=== PATIENT | male | born 1990 | race Caucasian/White ===

== ENCOUNTER 2017-07-29 12:45 | Emergency (ER) | payer OTHER, BC ==
[~2017-07-29] VITALS: Ht 188 cm; Wt 83.9 kg
[~2017-07-29 12:45] MED LIST: CIPR-344 PO; DICL-195 PO; DOCU-416 PO; HYDR-4225 PO; HYDR-4309 PO; HYDR25SU51 RC; LIDO5T TP; ONDA4TAB PO; OXYC-854 PO; OXYC-865 PO; PERM60CR17 TP
--- NOTE | 2017-07-29 12:56 | ER Report ---
History and Physical Time Seen By MD: 12:54 HPI/ROS CC: Painful right thumb HPI: 26-year-old male with a negative past medical history is negative, 2 day's ago while moving a bed spring he contused his thumb against a wall. The fingernail on the right thumb is intact but with blood underneath the nail. Flexion and extension at all digits of the right thumb are intact. Pain scale is a seven- day with movement. Rest makes it better. Sensation is present. Activity makes it worse rest makes it better. There is no numbness or tingling of the thumb. ROS: 12 point review of systems essentially negative other than what's mentioned in history of present illness. NURSES AND OLD MEDICAL RECORDS: Reviewed PMH: Reviewed SURGICAL HX: Reviewed FAMILY HX: Noncontributory SOCIAL HX: Patient is tobacco but denies illicit drugs. He lives a home. VITAL SIGNS: Reviewed CONSTITUTIONAL: 26-year-old male in minimal distress. PHYSICAL EXAM: HEENT: Pupils equal round reactive to light and accommodate, Lips dry mucous membranes moist gums nonbleeding uvula midline and rises equally with phonation. NECK: Neck supple, thyroid not appreciated. Trachea midline and rises equally with phonation. CARDIAC: S1-S2 regular rate rhythm no murmurs rubs or gallops. LUNGS: Lungs clear bilaterally posteriorly in all yousif. Good air movement. ABDOMEN: Abdomen soft, nondistended, bowel sounds active in all 4 quadrants. MUSCULOSKELETAL: Strength 5 out of 5 x 4 extremities, no deformities noted. Right thumb as above in history of present illness. NEUROLOGIC: Patient alert and oriented by 3 Allergies: Coded Allergies: No Known Drug Allergies (Unverified , 07/14/17) Home Meds Active Scripts Hydroxyzine Hcl (HYDROXYZINE HCL) 25 Mg Tablet, 25 MG PO Q6H Y for ITCHING, #30 TAB Prov:JOSE EDUARDO MCKEON 07/14/17 Permethrin (PERMETHRIN) 60 Gm Cream..g., 1 APPLIC TP ONCE, #2 TUBE may repeat x1 in 14 days if there is no improvement Prov:JOSE EDUARDO MCKEONP 07/14/17 Hx Smoking: Yes (1 pack daily for 8 years, currently chews 1 can q 3 days) Smoking Status: Former Smoker Exposure to Second Hand Smoke?: Yes Hx Substance Use Disorder: Yes Constitutional Vital Sign - Last 24 Hours 07/29/17 12:55 Temp 99.2 Pulse 90 Resp 20 B/P (MAP) 134/85 Pulse Ox 95 O2 Delivery Room Air Medical Decision Making EKG/Imaging Imaging X-ray right thumb: Sejal Fracture. ED Course/Re-evaluation ED Course Right thumbnail has been reviewed with the cautery. Blood was expressed. Pain level has decreased. Patient received Augmentin 875 and Keflex 1000 mg by mouth. Thumb was bandaged. Patient will follow-up with orthopedics. Patient aware of plan and in agreement. Re-evaluation MDM includes but not excluded to contusion, possible fracture, dislocation. Decision to Disposition Date: Jul 29, 2017 Decision to Disposition Time: 14:02 Depart Departure Latest Vital Signs Vital Signs Date Time Temp Pulse Resp B/P (MAP) Pulse Ox O2 Delivery O2 Flow Rate FiO2 07/29/17 12:55 99.2 90 20 134/85 95 Room Air Impression: Primary Impression: Closed fracture of tuft of distal phalanx of right thumb Ruled Out: Closed fracture of tuft of distal phalanx of finger Condition: Condition Unchanged Disposition: HOME OR SELF-CARE Referrals: JIM LARES MD Call Dr. Lares's office when you leave the emergency room today and make an appointment for next week. New Scripts Oxycodone Hcl/Acetaminophen (PERCOCET 5-325 MG TABLET) 1 Each Tablet 1 EACH PO Q4H Y for PAIN, #20 TAB Prov: CONRAD ROBERTS MD 07/29/17 Amoxicillin/Pot Clav 875-125 Mg Tab (AUGMENTIN 875-125 TABLET) 1 Each Tablet 1 TAB PO Q12H for 14 Days, #28 TAB Prov: CONRAD ROBERTS MD 07/29/17 Patient Instructions: Thumb Fracture (ED) Additional Instructions: Follow-up with orthopedics next week. I will give you a work release until seen by an orthopedic surgeon. He is given oxycodone for pain and Augmentin for antibiotic take both as prescribed. I and the staff wanted to thank you for allowing us to take care of your needs today in the emergency department at [facility]. We have tried to answer all of your questions and concerns. Please feel free to return to the emergency department for any further concerns or unanswered questions. CONRAD ROBERTS MD Jul 29, 2017 12:55
[2017-07-29] MEDS ORDERED: CEPHALEXIN MONO 500 MG CAP PO ONE (13:50)
[2017-07-29] MEDS ORDERED: AMOX/CLAV 875 MG TAB PO ONE (13:50)
[2017-07-29] MEDS ORDERED: AMOX-559 PO (14:10)
[2017-07-29] MEDS ORDERED: OXYC-865 PO (14:10)
[2017-07-29 14:23] VITALS: BP 130/57
--- NOTE | 2017-07-29 14:32 | RADIOLOGY IMAGING REPORT ---
FACILITY: [facility] PATIENT NAME: Justin Catherine : 1990 MR: [id number] V: [id number] EXAM DATE: ORDERING PHYSICIAN: CONRAD ROBERTS TECHNOLOGIST: Location: [facility] [place] Patient: Justin Catherine : 1990 Visit/Account:[id number] Date of Sevice: 07/29/2017 INDICATION: TRAUMA. DATE: 07/29/2017 2:27 PM. TECHNIQUE: FINGER RIGHT THUMB COMPARISON: None FINDINGS: There is fracture at the tuft of the distal phalanx of the thumb. This is mildly displaced. IMPRESSION: Tuft fracture at the distal phalanx of the thumb. Report Dictated By: Fabiana Turcios MD at 07/29/2017 2:27 PM Report E-Signed By: Fabiana Turcios MD at 07/29/2017 2:28 PM WSN:[id number]
== END 2017-07-29 14:15 | disposition home or self-care (01) ==
LOC: ER 12:45
DX: S62.524A Nondisplaced fracture of distal phalanx of right thumb, initial encounter for closed fracture (principal)
CPT/HCPCS: 99282

== ENCOUNTER → 2018-01-09 | Outpatient (CLI) | payer SELFPAY ==
[~2018-01-09] MED LIST changes: +AMOX-559 PO
== END ==
LOC: AMB 23:39
PROVIDERS: ATTEND Nurse Practitioner
DX: R07.9 Chest pain, unspecified (principal)
CPT/HCPCS: A0425; A0427

== ENCOUNTER 2018-01-10 00:25 | Emergency (ER) | payer BC, OTHER ==
--- NOTE | 2018-01-10 00:22 | ER Report ---
History and Physical Time Seen By MD: 00:22 HPI/ROS CHIEF COMPLAINT: Sharp chest pain HISTORY OF PRESENT ILLNESS: 27-year-old male brought in by ambulance from home complaining of sudden onset of sharp chest pain 2 hours prior to arrival. Patient notes mild cold symptoms. Patient notes no fever or chills. He denies productive cough. Patient denies leg swelling or calf pain. Patient denies GERD symptoms. Patient notes increased pain with deep inspiration. Patient initially was reporting 10/10 pain to EMS. He received 4 baby aspirin. His pain began to resolve spontaneously. REVIEW OF SYSTEMS: Respiratory: No cough, no dyspnea. Cardiovascular: No chest pain, no palpitations. Gastrointestinal: No vomiting, no abdominal pain. Musculoskeletal: No back pain. Allergies: Coded Allergies: No Known Drug Allergies (Unverified , 07/14/17) Home Meds Discontinued Scripts Oxycodone Hcl/Acetaminophen (PERCOCET 5-325 MG TABLET) 1 Each Tablet, 1 EACH PO Q4H Y for PAIN, #20 TAB Prov:CONRAD ROBERTS MD 07/29/17 Amoxicillin/Pot Clav 875-125 Mg Tab (AUGMENTIN 875-125 TABLET) 1 Each Tablet, 1 TAB PO Q12H for 14 Days, #28 TAB Prov:CONRAD ROBERTS MD 07/29/17 Hydroxyzine Hcl (HYDROXYZINE HCL) 25 Mg Tablet, 25 MG PO Q6H Y for ITCHING, #30 TAB Prov:JOSE EDUARDO MCKEON 07/14/17 Permethrin (PERMETHRIN) 60 Gm Cream..g., 1 APPLIC TP ONCE, #2 TUBE may repeat x1 in 14 days if there is no improvement Prov:JOSE EDUARDO MCKEON 07/14/17 Reviewed Nurses Notes: Yes Old Medical Records Reviewed: Yes Hx Smoking: Yes (1 pack daily for 8 years, currently chews 1 can q 3 days) Smoking Status: Former Smoker Exposure to Second Hand Smoke?: Yes Hx Substance Use Disorder: Yes Constitutional Vital Sign - Last 24 Hours 01/10/18 01/10/18 01/10/18 01/10/18 00:19 00:30 00:45 01:00 Temp 98.6 Pulse 90 87 Resp 16 15 B/P (MAP) 115/75 112/69 (83) 111/74 (86) Pulse Ox 98 99 O2 Delivery Room Air Physical Exam Vital signs stable, afebrile, pulse ox normal General Appearance: The patient is alert, has no immediate need for airway protection and no current signs of toxicity. Mild distress HEENT: Pupils equal and round no injection. TMs normal, oropharynx with mild erythema, no exudate Respiratory: Chest is non tender, lungs are clear to auscultation.+ Chest wall tenderness Cardiac: regular rate and rhythm Gastrointestinal: Abdomen is soft and non tender, no masses, bowel sounds normal. Musculoskeletal: Neck: Neck is supple and non tender. Extremities have full range of motion and are non tender. Skin: No rashes or lesions. DIFFERENTIAL DIAGNOSIS: After history and physical exam differential diagnosis was considered for chest pain including but not limited to myocardial ischemia, pericarditis pulmonary embolus, chest wall pain, pleural inflammation and pulmonary infectious causes. Medical Decision Making Data Points Result Diagram: 01/10/18 0000 01/10/18 0000 Laboratory Hematology Test 01/10/18 00:00 Red Blood Count 5.31 M/uL (4.00-5.60) Mean Corpuscular Volume 90.2 fL (80.0-96.0) Mean Corpuscular Hemoglobin 31.6 pg (26.0-33.0) Mean Corpuscular Hemoglobin Concent 35.1 g/dL (32.0-36.0) Red Cell Distribution Width 13.6 % (11.5-14.5) Mean Platelet Volume 7.4 fL (7.2-11.1) Neutrophils (%) (Auto) 50.0 % (39.4-72.5) Lymphocytes (%) (Auto) 37.0 % (17.6-49.6) Monocytes (%) (Auto) 8.9 % (4.1-12.4) Eosinophils (%) (Auto) 3.2 % (0.4-6.7) Basophils (%) (Auto) 0.9 % (0.3-1.4) Nucleated RBC Relative Count (auto) 0.0 /100WBC Neutrophils # (Auto) 4.7 K/uL (2.0-7.4) Lymphocytes # (Auto) 3.5 K/uL (1.3-3.6) Monocytes # (Auto) 0.8 K/uL (0.3-1.0) Eosinophils # (Auto) 0.3 K/uL (0.0-0.5) Basophils # (Auto) 0.1 K/uL (0.0-0.1) Nucleated RBC Absolute Count (auto) 0.00 K/uL D-Dimer Quantitative (PE/DVT) < 0.27 ug/ml (0-0.50) Sodium Level 141 mmol/L (137-145) Potassium Level 3.6 mmol/L (3.5-5.0) Chloride Level 99 mmol/L (98-107) Carbon Dioxide Level 26 mmol/L (22-30) Blood Urea Nitrogen 18 mg/dl (9-21) Creatinine 1.20 mg/dl (0.66-1.25) Glomerular Filtration Rate Calc > 60.0 Random Glucose 100 mg/dl (75-110) Calcium Level 9.1 mg/dl (8.4-10.2) Total Bilirubin 0.6 mg/dl (0.2-1.3) Aspartate Amino Transf (AST/SGOT) 28 U/L (0-35) Alanine Aminotransferase (ALT/SGPT) 30 U/L (0-56) Alkaline Phosphatase 55 U/L (0-126) Troponin I < 0.012 ng/ml Total Protein 7.5 g/dl (6.3-8.2) Albumin 4.4 g/dl (3.5-5.0) Chemistry Test 01/10/18 00:00 White Blood Count 9.4 k/uL (4.5-11.0) Red Blood Count 5.31 M/uL (4.00-5.60) Hemoglobin 16.8 g/dL (14.0-18.0) Hematocrit 47.8 % (42.0-52.0) Mean Corpuscular Volume 90.2 fL (80.0-96.0) Mean Corpuscular Hemoglobin 31.6 pg (26.0-33.0) Mean Corpuscular Hemoglobin Concent 35.1 g/dL (32.0-36.0) Red Cell Distribution Width 13.6 % (11.5-14.5) Platelet Count 288 K/uL (150-450) Mean Platelet Volume 7.4 fL (7.2-11.1) Neutrophils (%) (Auto) 50.0 % (39.4-72.5) Lymphocytes (%) (Auto) 37.0 % (17.6-49.6) Monocytes (%) (Auto) 8.9 % (4.1-12.4) Eosinophils (%) (Auto) 3.2 % (0.4-6.7) Basophils (%) (Auto) 0.9 % (0.3-1.4) Nucleated RBC Relative Count (auto) 0.0 /100WBC Neutrophils # (Auto) 4.7 K/uL (2.0-7.4) Lymphocytes # (Auto) 3.5 K/uL (1.3-3.6) Monocytes # (Auto) 0.8 K/uL (0.3-1.0) Eosinophils # (Auto) 0.3 K/uL (0.0-0.5) Basophils # (Auto) 0.1 K/uL (0.0-0.1) Nucleated RBC Absolute Count (auto) 0.00 K/uL D-Dimer Quantitative (PE/DVT) < 0.27 ug/ml (0-0.50) Glomerular Filtration Rate Calc > 60.0 Calcium Level 9.1 mg/dl (8.4-10.2) Total Bilirubin 0.6 mg/dl (0.2-1.3) Aspartate Amino Transf (AST/SGOT) 28 U/L (0-35) Alanine Aminotransferase (ALT/SGPT) 30 U/L (0-56) Alkaline Phosphatase 55 U/L (0-126) Troponin I < 0.012 ng/ml Total Protein 7.5 g/dl (6.3-8.2) Albumin 4.4 g/dl (3.5-5.0) Coagulation Test 01/10/18 00:00 D-Dimer Quantitative (PE/DVT) < 0.27 ug/ml EKG/Imaging EKG Interpretation 12 lead EK Rhythm: normal sinus rhythm [place]: Right axis deviation QRS: Incomplete right bundle branch block,? RVH ST segments: normal Imaging X-ray: Single view portable chest x-ray was obtained. I viewed the images myself on the PACS system. My interpretation of the images is: No infiltrate, no effusion, normal mediastinum., Comparison to previous chest x-ray dated , no significant change. The radiologist interpretation had no clinically significant variation from this interpretation. ED Course/Re-evaluation Clinical Indication for ER IV: IV Access ED Course Patient was admitted to an examination room. H&P was done. The differential diagnoses was considered. On clinical examination. Patient has chest wall tenderness. His EKG is unremarkable. He does have a pulmonary disease pattern. Patient's diagnostic studies are unremarkable. Patient's blood studies show normal troponin, normal d-dimer. Patient's much better with Toradol 30 mg IV. A GI cocktail. Patient be discharged home with conservative treatment plan. He's and recommended ibuprofen 600 mg 3 times daily. Decision to Disposition Date: Jan 10, 2018 Decision to Disposition Time: 01:03 Depart Departure Latest Vital Signs Vital Signs Date Time Temp Pulse Resp B/P (MAP) Pulse Ox O2 Delivery O2 Flow Rate FiO2 01/10/18 01:00 111/74 (86) 01/10/18 00:45 87 15 99 01/10/18 00:19 98.6 Room Air Impression: Primary Impression: Pleuritic chest pain Condition: Improved Disposition: HOME OR SELF-CARE Referrals: JAYJAY HAUSER MD Patient Instructions: Pleurisy (ED) Additional Instructions: Take ibuprofen 200 mg 3 tablets 3 times a day with food for pain relief Follow-up with primary care physician if unimproved in 3-5 days CHOCO JAMES DO Jan 10, 2018 00:22
[~2018-01-10 00:25] MED LIST changes: +KETOROLAC 30 MG/ML VIAL IVP ONE; +LIDOCAINE 2% VISC SLN 15ML UDC PO ONE; +MAG HYD/AL HYD/SIMETH 30ML UDC PO ONE
[2018-01-10 00:35] LABS: PLATELET COUNT, AUTOMATED 288 K/uL (150-450)
[2018-01-10 01:00] VITALS: BP 111/74
--- NOTE | 2018-01-10 01:10 | RADIOLOGY IMAGING REPORT ---
FACILITY: [facility] PATIENT NAME: Justin Catherine : 1990 MR: [id number] V: [id number] EXAM DATE: ORDERING PHYSICIAN: CHOCO JAMES TECHNOLOGIST: Location: [facility] - [place] Patient: Justin Catherine : 1990 Visit/Account:[id number] Date of Sevice: 01/10/2018 PORTABLE CHEST: Indication: Chest pain. Technique: A single frontal film was obtained. Comparison: 10/10/2015 Skeletal and soft tissue structures: Intact and unremarkable. Heart and mediastinum: Within normal limits. Lung yousif: Well-expanded and clear. No focal opacities. No vascular congestion. Pleural spaces: Unremarkable. Impression: No acute process or significant change. Report Dictated By: Juwan Souza MD at 01/10/2018 1:05 AM Report E-Signed By: Juwan Souza MD at 01/10/2018 1:06 AM WSN:[id number]
--- NOTE | 2018-01-10 02:10 | EKG ---
[place] [facility] [place] ETTA SZYMANSKI : [id number] MR: [id number] V: [id number] EXAM DATE: ORDERING PHYSICIAN: CHOCO JAMES TECHNOLOGIST: LAVERN Test Reason : CP Blood Pressure : / mmHG Vent. Rate : 090 BPM Atrial Rate : 090 BPM P-R Int : 142 ms QRS Dur : 092 ms QT Int : 360 ms P-R-T Axes : 083 228 059 degrees QTc Int : 440 ms Normal sinus rhythm Right superior axis deviation Pulmonary disease pattern Right ventricular hypertrophy No ST-T abnormalities No previous ECGs available Confirmed by TRUE CONNORS ([id number]) on 01/10/2018 6:38:01 AM Referred By: ERIKA Confirmed By:TRUE CONNORS
== END 2018-01-10 01:27 | disposition home or self-care (01) ==
LOC: ER 00:27
DX: R07.89 Other chest pain (principal)
CPT/HCPCS: 71045; 84484; 85025; 85379; 93005; 96374; 99284; J1885; 82040; 82247; 82310; 82374; 82435; 82565; 82947; 84075; 84132; 84155; 84295; 84450; 84460; 84520

== ENCOUNTER → 2018-05-22 | Outpatient (CLI) | payer OTHER ==
[~2018-05-22] MED LIST changes: -HYDR-4309 PO; +HYDR-653 PO; -KETOROLAC 30 MG/ML VIAL IVP ONE; -LIDOCAINE 2% VISC SLN 15ML UDC PO ONE; -MAG HYD/AL HYD/SIMETH 30ML UDC PO ONE
== END ==
LOC: US 01:21
PROVIDERS: ATTEND Family Medicine
DX: Z01.810 Encounter for preprocedural cardiovascular examination (principal)
CPT/HCPCS: 93306

== ENCOUNTER 2018-06-01 15:50 | Emergency (ER) | payer OTHER ==
--- NOTE | 2018-06-01 15:54 | ER Report ---
History and Physical Time Seen By MD: 15:54 HPI/ROS CHIEF COMPLAINT: Shortness of breath, chest pain HISTORY OF PRESENT ILLNESS: Patient is a 27-year-old male with a history of a PFO here with complaints of acute onset shortness breath, chest pain. Symptoms started approximately 1 hour prior to arrival patient was at work. Patient is very anxious appearing, clutching his chest taking rapid breaths at time of evaluation and arrival at the emergency department. Oxygen saturations were 99% on room air, patient was normotensive and not tachycardic. Patient was afebrile at time of evaluation. Reportedly this has happened in the past but the patient is unable to describe what he was diagnosed with at that time. Lungs are clear to auscultation similar lung yousif REVIEW OF SYSTEMS: Constitutional: No fever, no chills. Eyes: No discharge. ENT: No sore throat. Cardiovascular: + mid sternal chest pain, no palpitations. Respiratory: No cough, + shortness of breath. Gastrointestinal: No abdominal pain, no vomiting. Genitourinary: No hematuria. Musculoskeletal: No back pain. Skin: No rashes. Neurological: No headache. Allergies: Coded Allergies: No Known Drug Allergies (Unverified , 06/01/18) Home Meds No Active Prescriptions or Reported Meds Hx Smoking: Yes (1 pack daily for 8 years, currently chews 1 can q 3 days) Smoking Status: Former Smoker Exposure to Second Hand Smoke?: Yes Hx Substance Use Disorder: No Hx Alcohol Use: Yes (occ) Constitutional Vital Sign - Last 24 Hours 06/01/18 06/01/18 06/01/18 15:53 16:13 16:13 Temp 98.7 Pulse 90 76 Resp 60 27 B/P (MAP) 122/81 Pulse Ox 97 93 O2 Delivery Room Air Room Air Physical Exam General Appearance: The patient is alert, has no immediate need for airway protection and no signs of toxicity. Anxious appearing, moderate distress secondary to reported SOB Eyes: Pupils equal and round no pallor or injection. ENT, Mouth: Mucous membranes are moist. Respiratory: There are no retractions, lungs are clear to auscultation in all carlos ng yousif though patient was notably tachypneic Cardiovascular: Regular rate and rhythm. Gastrointestinal: Abdomen is soft and non tender, no masses, bowel sounds normal. Neurological: Anxious, moving all extremities Skin: Warm and dry, no rashes. Musculoskeletal: Neck is supple non tender. Extremities are nontender, nonswollen and have full range of motion. DIFFERENTIAL DIAGNOSIS: After history and physical exam differential diagnosis was considered for blood clot, thrombosis, pneumonia, pneumothorax, pulmonary embolism, stroke, anxiety Medical Decision Making Data Points Result Diagram: 06/01/18 1603 06/01/18 1603 Laboratory Hematology Test 06/01/18 16:03 Red Blood Count 5.66 M/uL (4.00-5.60) Mean Corpuscular Volume 88.6 fL (80.0-96.0) Mean Corpuscular Hemoglobin 30.5 pg (26.0-33.0) Mean Corpuscular Hemoglobin Concent 34.4 g/dL (32.0-36.0) Red Cell Distribution Width 13.2 % (11.5-14.5) Mean Platelet Volume 8.1 fL (7.2-11.1) Neutrophils (%) (Auto) 61.5 % (39.4-72.5) Lymphocytes (%) (Auto) 27.2 % (17.6-49.6) Monocytes (%) (Auto) 7.5 % (4.1-12.4) Eosinophils (%) (Auto) 2.7 % (0.4-6.7) Basophils (%) (Auto) 1.1 % (0.3-1.4) Nucleated RBC Relative Count (auto) 0.0 /100WBC Neutrophils # (Auto) 5.3 K/uL (2.0-7.4) Lymphocytes # (Auto) 2.3 K/uL (1.3-3.6) Monocytes # (Auto) 0.6 K/uL (0.3-1.0) Eosinophils # (Auto) 0.2 K/uL (0.0-0.5) Basophils # (Auto) 0.1 K/uL (0.0-0.1) Nucleated RBC Absolute Count (auto) 0.00 K/uL Prothrombin Time 12.5 seconds (12.0-14.4) Prothromb Time International Ratio 0.93 Activated Partial Thromboplast Time 25 seconds (23-35) D-Dimer Quantitative (PE/DVT) < 0.27 ug/ml (0-0.50) Sodium Level 143 mmol/L (137-145) Potassium Level 4.0 mmol/L (3.5-5.0) Chloride Level 105 mmol/L (98-107) Carbon Dioxide Level 24 mmol/L (22-30) Blood Urea Nitrogen 15 mg/dl (9-21) Creatinine 1.00 mg/dl (0.66-1.25) Glomerular Filtration Rate Calc > 60.0 Random Glucose 87 mg/dl (75-110) Calcium Level 9.9 mg/dl (8.4-10.2) Total Bilirubin 0.5 mg/dl (0.2-1.3) Aspartate Amino Transf (AST/SGOT) 20 U/L (0-35) Alanine Aminotransferase (ALT/SGPT) 29 U/L (0-56) Alkaline Phosphatase 49 U/L (0-126) Troponin I < 0.012 ng/ml Total Protein 8.3 g/dl (6.3-8.2) Albumin 4.9 g/dl (3.5-5.0) Chemistry Test 06/01/18 16:03 White Blood Count 8.5 k/uL (4.5-11.0) Red Blood Count 5.66 M/uL (4.00-5.60) Hemoglobin 17.3 g/dL (14.0-18.0) Hematocrit 50.2 % (42.0-52.0) Mean Corpuscular Volume 88.6 fL (80.0-96.0) Mean Corpuscular Hemoglobin 30.5 pg (26.0-33.0) Mean Corpuscular Hemoglobin Concent 34.4 g/dL (32.0-36.0) Red Cell Distribution Width 13.2 % (11.5-14.5) Platelet Count 354 K/uL (150-450) Mean Platelet Volume 8.1 fL (7.2-11.1) Neutrophils (%) (Auto) 61.5 % (39.4-72.5) Lymphocytes (%) (Auto) 27.2 % (17.6-49.6) Monocytes (%) (Auto) 7.5 % (4.1-12.4) Eosinophils (%) (Auto) 2.7 % (0.4-6.7) Basophils (%) (Auto) 1.1 % (0.3-1.4) Nucleated RBC Relative Count (auto) 0.0 /100WBC Neutrophils # (Auto) 5.3 K/uL (2.0-7.4) Lymphocytes # (Auto) 2.3 K/uL (1.3-3.6) Monocytes # (Auto) 0.6 K/uL (0.3-1.0) Eosinophils # (Auto) 0.2 K/uL (0.0-0.5) Basophils # (Auto) 0.1 K/uL (0.0-0.1) Nucleated RBC Absolute Count (auto) 0.00 K/uL Prothrombin Time 12.5 seconds (12.0-14.4) Prothromb Time International Ratio 0.93 Activated Partial Thromboplast Time 25 seconds (23-35) D-Dimer Quantitative (PE/DVT) < 0.27 ug/ml (0-0.50) Glomerular Filtration Rate Calc > 60.0 Calcium Level 9.9 mg/dl (8.4-10.2) Total Bilirubin 0.5 mg/dl (0.2-1.3) Aspartate Amino Transf (AST/SGOT) 20 U/L (0-35) Alanine Aminotransferase (ALT/SGPT) 29 U/L (0-56) Alkaline Phosphatase 49 U/L (0-126) Troponin I < 0.012 ng/ml Total Protein 8.3 g/dl (6.3-8.2) Albumin 4.9 g/dl (3.5-5.0) Coagulation Test 06/01/18 16:03 Prothrombin Time 12.5 seconds Prothromb Time International Ratio 0.93 Activated Partial Thromboplast Time 25 seconds D-Dimer Quantitative (PE/DVT) < 0.27 ug/ml EKG/Imaging EKG Interpretation 12 lead EKG: Normal sinus rhythm, ventricular rate 90, QTc 462, no arrhythmias or ischemic changes Rhythm: normal sinus rhythm Epes: normal QRS: normal ST segments: normal Monitor Interpretation: Normal Sinus Rhythm Imaging Location: [facility] - [place] Patient: Justin Catherine : 1990 Visit/Account:[id number] Date of Sevice: 06/01/2018 CHEST SINGLE AP Indication: Chest pain.. Comparison: 01/10/2018. Findings: Cardiomediastinal silhouette and pulmonary vessels within normal limits. There is no focal infiltrate or lobar consolidation. No pneumothorax or pleural effusion. No nodule. Mild chronic interstitial changes. Upper abdomen is unremarkable. No acute bony abnormality. IMPRESSION: 1. No acute cardiopulmonary process. ED Course/Re-evaluation ED Course Patient is a 27-year-old male here with complaints of shortness breath, chest pain in the setting of a reported PFO. Patient initially stood, anxious appearing but was maintaining oxygen saturations of 99% on room air, normotensive, not tachycardic, moderately tachypneic. Chest x-ray showed no acute findings. EKG showed no ischemic changes or arrhythmias. D-dimer was negative making further imaging unnecessary as a pulmonary embolism or blood clot was unlikely. Troponin was negative. There was no leukocytosis. Electrolytes and kidney function were intact. Patient was given Ativan for anxiolytic. Patient was advised to follow-up with his PCP for follow-up evaluation and care.. Decision to Disposition Date: Jun 01, 2018 Decision to Disposition Time: 17:33 Depart Departure Latest Vital Signs Vital Signs Date Time Temp Pulse Resp B/P (MAP) Pulse Ox O2 Delivery O2 Flow Rate FiO2 06/01/18 16:13 93 Room Air 06/01/18 16:13 76 27 06/01/18 15:53 98.7 122/81 Impression: Primary Impression: Chest wall pain Additional Impression: Shortness of breath Condition: Improved Disposition: HOME OR SELF-CARE New Scripts No Active Prescriptions or Reported Meds Patient Instructions: Chest Wall Pain (GEN), Dyspnea (GEN) Additional Instructions: Please follow up closely with your family doctor in the next 2 days. Please drink plenty of water. There are no signs of infection on your chest x-ray and your blood work showed no signs of infection or clotting. Please return if you develop fevers, worsening pain, shortness of breath, headache, blurred vision or motor weakness in her extremities or face. Problem Qualifiers SAMANTHA MYERS DO Jun 01, 2018 15:54
[2018-06-01] MEDS ORDERED: NS(*) 0.9% 1000 ML BAG 1,000 ML IV ONE (16:01)
[2018-06-01] MEDS ORDERED: LORazepam 2 MG/ML VIAL IVP ONE (16:05)
[2018-06-01] MEDS ORDERED: ALBUTEROL/IPRATROPIUM 3 ML NEB NEB ONE (16:05)
--- NOTE | 2018-06-01 16:18 | EKG ---
FACILITY: [facility] - [place] PATIENT NAME: ETTA SZYMANSKI : [id number] MR: [id number] V: [id number] EXAM DATE: ORDERING PHYSICIAN: SAMANTHA MYERS TECHNOLOGIST: Test Reason : SOB Blood Pressure : / mmHG Vent. Rate : 090 BPM Atrial Rate : 090 BPM P-R Int : 144 ms QRS Dur : 100 ms QT Int : 378 ms P-R-T Axes : 076 242 049 degrees QTc Int : 462 ms Normal sinus rhythm Right superior axis deviation Possible Right ventricular hypertrophy Abnormal ECG When compared with ECG of 10-JAN-2018 00:28, No significant change was found Confirmed by DEBBY GUIDO ([id number]) on 06/01/2018 7:30:07 PM Referred By: Confirmed By:DEBBY GUIDO
[2018-06-01 16:27] LABS: INR 0.93
[2018-06-01 16:34] LABS: PLATELET COUNT, AUTOMATED 354 K/uL (150-450)
--- NOTE | 2018-06-01 17:07 | RADIOLOGY IMAGING REPORT ---
FACILITY: [facility] PATIENT NAME: Justin Catherine : 1990 MR: [id number] V: [id number] EXAM DATE: ORDERING PHYSICIAN: SAAMNTHA MYERS TECHNOLOGIST: Location: [facility] - [place] Patient: Justin Catherine : 1990 Visit/Account:[id number] Date of Sevice: 06/01/2018 CHEST SINGLE AP Indication: Chest pain.. Comparison: 01/10/2018. Findings: Cardiomediastinal silhouette and pulmonary vessels within normal limits. There is no focal infiltrate or lobar consolidation. No pneumothorax or pleural effusion. No nodule. Mild chronic interstitial changes. Upper abdomen is unremarkable. No acute bony abnormalit y. IMPRESSION: 1. No acute cardiopulmonary process. Report Dictated By: J Luis Ndiaye at 06/01/2018 5:01 PM Report E-Signed By: J Luis Ndiaye at 06/01/2018 5:03 PM WSN:[id number]
[2018-06-01 17:30] VITALS: BP 115/83
== END 2018-06-01 17:45 | disposition home or self-care (01) ==
LOC: ER 17:41
DX: R07.89 Other chest pain (principal); R06.02 Shortness of breath
CPT/HCPCS: 84484; 85025; 85379; 85610; 85730; 93005; 94640; 96361; 96374; 99285; J2060; J7030; J7620; 71045; 82040; 82247; 82310; 82374; 82435; 82565; 82947; 84075; 84132; 84155; 84295; 84450; 84460; 84520; 99284